=== PATIENT | male | born 1975 | race Caucasian/White ===

== ENCOUNTER 2017-07-02 14:19 | Emergency (ER) | payer OTHER ==
[2017-07-02 15:00] VITALS: BP 151/79; PULSE 112; RESP 16; TEMP 97.5; O2SAT 100
--- NOTE | 2017-07-02 15:19 | ED PDOC ---
Lower Extremity Pain/Injury Time Seen by Provider: 07/02/17 15:09 Chief Complaint (Nursing): Lower Extremity Problem/Injury Additional Complaint(s): Pt reports L knee, L ankle and R 1st toe pain X 3 days, typical of his usual gout pain. Has not taken any pain medication at home. Also reports depression X 2 weeks, unable to leave house, no suicidal ideation, no homicidal ideation. Past Medical History Reviewed: Nursing Documentation, Vital Signs Vital Signs: Last Vital Signs Temp 97.5 F L 07/02/17 14:58 Pulse 112 H 07/02/17 14:58 Resp 16 07/02/17 14:58 BP 151/79 H 07/02/17 14:58 Pulse Ox 100 07/02/17 14:58 - Medical History Other PMH: Gout - Family History Family History: States: Unknown Family Hx - Living Arrangements Living Arrangements: Alone - Social History Alcohol: None - Home Medications Home Medications: Ambulatory Orders Medication Instructions Recorded Colchicine 0.6 mg PO ONCE 1 Days #1 capsule 07/02/17 - Allergies Allergies/Adverse Reactions: Allergies Allergy/AdvReac Type Severity Reaction Status Date / Time No Known Allergies Allergy Verified 07/02/17 14:58 Review of Systems Constitutional: Negative for: Fever, Chills Cardiovascular: Negative for: Chest Pain Respiratory: Negative for: Cough Musculoskeletal: Positive for: Leg Pain, Foot Pain Skin: Negative for: Rash, Lesions Neurological: Negative for: Weakness, Numbness Psych: Positive for: Depression. Negative for: Suicidal ideation Physical Exam - Reviewed Nursing Documentation Reviewed: Yes Vital Signs Reviewed: Yes - Physical Exam Appears: Positive for: Well, No Acute Distress Head Exam: Positive for: ATRAUMATIC, NORMAL INSPECTION Skin: Positive for: Normal Color, Warm, Dry Extremity: Positive for: Tenderness (L knee, L ankle, R 1st digit), Capillary Refill (<2 sec), Swelling (L knee). Negative for: Normal ROM, Pedal Edema, Calf Tenderness, Deformity Neurologic/Psych: Positive for: Alert, Oriented - Laboratory Results Result Diagrams: 07/02/17 16:20 07/02/17 16:20 - ECG O2 Sat by Pulse Oximetry: 100 Medical Decision Making Medical Decision Makin yo with gout flare up and depression. - labs - Toradol - Podiatry consult - Crisis evaluation Pt evaluated by Podiatry and Crisis. Disposition - Clinical Impression Clinical Impression: Gout attack - Disposition Disposition: Routine/Home Disposition Time: 17:15 Condition: STABLE Prescriptions: Colchicine 0.6 mg PO ONCE 1 Days #1 capsule Forms: [employer] (B[place]ladeshi)
[2017-07-02 16:33] LABS: BASO # 0.1 K/uL (0.0-0.2); BASO % 0.7 % (0.0-2.0); HEMOGLOBIN 15.6 g/dL (12.0-18.0); LYMPH # 1.3 K/uL (1.0-4.3); LYMPH % 9.4 % (20.0-40.0); MEAN CELL VOLUME 87.7 fl (80.0-94.0); MEAN CORPUSCULAR HEMOGLOBIN 29.7 pg (27.0-31.0); MEAN CORPUSCULAR HGB CONC 33.8 g/dL (33.0-37.0); MEAN PLATELET VOLUME 9.6 fl (7.2-11.7); MONO # 1.6 K/uL (0.0-0.8); MONO % 11.2 % (0.0-10.0); NEUT # 11.1 K/uL (1.8-7.0); NEUT % 78.7 % (50.0-75.0); PLATELET COUNT 198 K/uL (130-400); RBC 5.24 Mil/uL (4.40-5.90); RED CELL DISTRIBUTION WIDTH 14.2 % (11.5-14.5); WHITE BLOOD COUNT 14.2 K/uL (4.8-10.8)
[2017-07-02 16:53] LABS: ALB/GLOB RATIO 1.2 (1.0-2.1); ALBUMIN 4.8 g/dL (3.5-5.0); ALT/SGPT 83 U/L (21-72); AST/SGOT 32 U/L (17-59); BLOOD UREA NITROGEN 13 mg/dl (9-20); CALCIUM 9.7 mg/dL (8.4-10.2); GFR AFRICAN-AMERICAN > 60; GFR NON-AFRICAN AMERICAN > 60; URIC ACID 12.6 mg/Dl (3.5-8.5)
[2017-07-02] MEDS ORDERED: COLCHICINE 0.6 MG CAPSULE PO STA (17:19)
[2017-07-02 17:24] LABS: ACETAMINOPHEN < 10.0 ug/ml (10.0-30.0); SALICYLATE < 1.0 mg/dl
[2017-07-02 17:52] LABS: LYMPHOCYTE 11 % (20-50); MONOCYTE 3 % (0-10); NEUTROPHIL 82 % (42-75); REACTIVE LYMPHOCYTES 4 % (0-0); TOTAL CELLS COUNTED 100
[2017-07-02 17:57] LABS: PLATELET ESTIMATE NORMAL (NORMAL)
--- NOTE | 2017-07-02 18:22 | CP.PCM.CON ---
History of Present Illness - History of Present Illness History of Present Illness: Consult note - Dr. Layne 42 year old male patient with PMHx of gout was seen and evaluated at bedside for ongoing right 1st MTPJ pain which started about 3 days ago. Patient reports that he has been diagnosed with gout in the past and is currently on allopurinol. Patient also reports that he had fluid removed from his knee when he had a gouty attack previously as well. Patient reports that his diet habits are terrible which is what brought up the reoccurring gout issue. Patient denies of having any recent onset of F/N/V/C/SOB/CP/headache. Patient denies of any other pedal complains at this time. PMHx: Gout PSHx: GI surgery Allergies: N.K.D.A SHx: Agrees to drinking EtOH but denies of smoking or illicit drug usage Review of Systems - Constitutional Constitutional: As Per HPI Past Patient History - Past Social History Alcohol: None - CARDIAC Hx Cardiac Disorders: No Hx Hypertension: No - PULMONARY Hx Tuberculosis: No - NEUROLOGICAL HX Cerebrovascular Accident: No Hx Seizures: No - HEMATOLOGICAL/ONCOLOGICAL Hx Cancer: No Hx Human Immunodeficiency Virus (HIV): No - GENITOURINARY/GYNECOLOGICAL Hx Sexually Transmitted Disorders: No Meds Home Medications: Home Medication List Medication Instructions Recorded Confirmed Type Colchicine 0.6 mg PO ONCE 1 Days #1 capsule 07/02/17 Rx Allergies/Adverse Reactions: Allergies Allergy/AdvReac Type Severity Reaction Status Date / Time No Known Allergies Allergy Verified 07/02/17 14:58 Physical Exam - Constitutional Appears: Well, Non-toxic, No Acute Distress - Extremities Exam Additional comments: VASC: DP/PT pulses are palpable 2/4 B/L. Cap refill time: < 3 seconds to all digits. Skin temperature warm to warm from proximal to distal with erythema at the medial 1st MTPJ, as well as lateral ankle DERM: no open lesions, no interdigital maceration. No clinical suspicion of active infection NEURO: Epicritic and protective sensation intact ORTHO: Tenderness on palpation of the 1st MTPJ as well as lateral ankle. Pain on ROM at the knee joint as well. - Neurological Exam Neurological exam: Alert, Oriented x3 - Psychiatric Exam Psychiatric exam: Normal Affect, Normal Mood Results - Vital Signs Recent Vital Signs: Last Vital Signs Temp 97.5 F L 02/21/18 14:58 Pulse 112 H 07/02/17 14:58 Resp 16 07/02/17 14:58 BP 151/79 H 07/02/17 14:58 Pulse Ox 100 07/02/17 17:19 - Labs Result Diagrams: 07/02/17 16:20 07/02/17 16:20 Labs: Laboratory Results - last 24 hr 07/02/17 07/02/17 07/02/17 16:20 16:20 16:20 WBC 14.2 H RBC 5.24 Hgb 15.6 Hct 46.0 MCV 87.7 MCH 29.7 MCHC 33.8 RDW 14.2 Plt Count 198 MPV 9.6 Neut % (Auto) 78.7 H Lymph % (Auto) 9.4 L [place] % (Auto) 11.2 H Eos % (Auto) 0.0 Baso % (Auto) 0.7 Neut # (Auto) 11.1 H Lymph # (Auto) 1.3 [place] # (Auto) 1.6 H Eos # (Auto) 0.0 Baso # (Auto) 0.1 Neutrophils % (Manual) 82 H Lymphocytes % (Manual) 11 L Reactive Lymphs % 4 H Monocytes % (Manual) 3 Platelet Estimate Normal RBC Morphology Normal Macrocytosis (manual) Slight Sodium 140 Potassium 3.8 Chloride 101 Carbon Dioxide 23 Anion Gap 20 BUN 13 Creatinine 1.0 Est GFR ( Amer) > 60 Est GFR (Non-Af Amer) > 60 Random Glucose 116 H Uric Acid 12.6 H Calcium 9.7 Total Bilirubin 1.2 AST 32 ALT 83 H Alkaline Phosphatase 104 Total Protein 8.7 H Albumin 4.8 Globulin 3.9 Albumin/Globulin Ratio 1.2 Salicylates < 1.0 Acetaminophen < 10.0 L Assessment & Plan - Assessment and Plan (Free Text) Assessment: 42 year old male with PMHx of gout was evaluated at bedside for gouty flare Plan: Patient seen and evaluated at bedside Discussed patient in details with attending Dr. Layne Labs, vitals and charts reviewed Educated patient of proper diet Educated patient to take the medications as prescribed by his [employer] Rx: Colchicin given Educated patient to follow up with his [employer] Thank you for the podiatry consult and allowing to take part in patient care - Date & Time Date: 07/02/17 Time: 17:00
== END 2017-07-02 19:09 | disposition home or self-care (01) ==
LOC: H.ER 14:19
DX: M10.9 Gout, unspecified (principal)
CPT/HCPCS: 80053; 80329; 84550; 85025; 96374; 99282; J1885